=== PATIENT | male | born 1960 | race Caucasian/White ===

== ENCOUNTER 2016-09-18 11:41 | Emergency (ER) | payer MEDICARE, MEDICAID ==
[~2016-09-18] VITALS: Ht 165.1 cm; Wt 45.0 kg
[2016-09-18 11:42] VITALS: BP 135/95; PULSE 99; RESP 18; TEMP 98.8; O2SAT 98
--- NOTE | 2016-09-18 11:59 | PD ---
HPI . bites to hands and back pain for over several months Chief Complaint: Bite or Sting Time Seen by Provider: 11:59 Travel History International Travel<30 days: No Contact w/Intl Traveler<30days: No Traveled to known affect area: No History of Present Illness HPI 56-year-old homeless male here with complaints of bites to his bilateral hands. Patient says he thinks he may have been bitten by ants as he is sleeping in random places outside. He denies any fever, chills or swelling of the area. He tells me that he also has had left shoulder pain for several months and he would like us to check it out. He still has full range of motion of his bilateral hands. He has normal strength bilaterally. He has no other complaints. [facility] Social History Tobacco Use: Yes Review of Systems General / Constitutional: No: Fever Eyes: No: Visual changes HENT: No: Headaches Cardiovascular: No: Chest Pain or Discomfort Respiratory: No: Shortness of Breath Gastrointestinal: No: Abdominal Pain Genitourinary: No: Dysuria Musculoskeletal: Positive: Pain (left shoulder) Skin: Positive Other (insect bite to b/l hands), No Rash Neurologic: No: Weakness Psychiatric: No: Depression Endocrine: No: Polydipsia Hematologic/Lymphatic: No: Easy Bruising Physical Exam Narrative GENERAL: AAO x 3, no acute distress, Well-nourished, well-developed patient. SKIN: Warm and dry. No visible rashes or bruising. Bilateral hands with tiny papules and occasional pustule that appears to be at bite. There is no evidence of cellulitis or significant erythema. There is no edema. No temperature variation. HEAD: Normocephalic and atraumatic. EYES: No scleral icterus. No injection or drainage. ENT: No nasal drainage noted. Mucous membranes pink. Airway patent. NECK: Supple, trachea midline. No JVD. CARDIOVASCULAR: Regular rate and rhythm without murmurs, gallops, or rubs. RESPIRATORY: Breath sounds equal bilaterally. No accessory muscle use. No rhonchi or rales. GASTROINTESTINAL: Visual inspection normal EXTREMITIES: No cyanosis or edema. Full range of motion bilateral upper extremities. 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 BACK: Nontender without obvious deformity. No CVA tenderness. PSYCH: AAO x 3, normal affect. Data Data Last Documented VS Vital Signs Date Time Temp Pulse Resp B/P Pulse Ox O2 Delivery O2 Flow Rate FiO2 09/18/16 11:42 98.8 99 18 135/95 98 Room Air MDM Medical Decision Making Medical Screen Exam Complete: Yes Emergency Medical Condition: No Medical Record Reviewed: Yes Differential Diagnosis Ant bites, less likely cellulitis, chronic shoulder pain, less likely acute shoulder dislocation, less likely shoulder fracture Narrative Course Patient seen and examined. He appears to have an bites on his bilateral hands. There is no overt cellulitis or infection present. In regards to his shoulder pain this is chronic in nature. He has full range of motion of his bilateral joints in the upper extremity. I explained to him that he will need to establish with primary care provider for further workup and treatment. A medical screening exam was performed: At the time of evaluation the presenting medical condition was determined not to be of an emergent nature. The patient was given the option of receiving additional care, but declined. Patient was given options for additional community resources from which to obtain care. The Patient Has Been advised to seek medical attention for their presenting complaint. The patient has been advised to return to the ER at any time if an emergent condition develops. Diagnosis Primary Impression: Encounter for medical screening examination Condition: Stable Lakia Sousa September 18, 2016 11:59
[2016-09-26] MEDS ORDERED: [UNRECOGNIZED DRUG - CODE] (16:28)
[2016-09-26] MEDS ORDERED: [UNRECOGNIZED DRUG - REMARK] (16:28)
[2016-09-26] MEDS ORDERED: CRUTMIS (16:28)
[2016-09-26] MEDS ORDERED: [UNRECOGNIZED DRUG - SUPPLY] (16:32)
== END 2016-09-18 12:23 | disposition left against medical advice (07) ==
LOC: NEPK 11:41
DX: M54.9 Dorsalgia, unspecified (principal); M25.512 Pain in left shoulder
CPT/HCPCS: 99281

== ENCOUNTER 2016-11-03 11:36 | Emergency (ER) | payer MEDICARE, MEDICAID ==
[~2016-11-03 11:36] MED LIST: CRUTMIS; [UNRECOGNIZED DRUG - CODE]; [UNRECOGNIZED DRUG - REMARK]; [UNRECOGNIZED DRUG - SUPPLY]
[2016-11-03 11:38] VITALS: BP 135/95; PULSE 104; RESP 16; TEMP 98.2; O2SAT 98
--- NOTE | 2016-11-03 12:14 | PD ---
HPI Chief Complaint: Back/ Neck Pain or Injury Time Seen by Provider: 12:13 Travel History International Travel<30 days: No Contact w/Intl Traveler<30days: No Traveled to known affect area: No History of Present Illness HPI 56-year-old male presents emergency Department with complaint of right-sided low back pain that radiates down his right leg since yesterday after standing up out of a chair. 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 Denies traumatic injury. History of chronic back pain. Denies encopresis, incontinence, saddle anesthesias. Denies paresthesias , loss of sensation, decreased motion, decreased strength to right lower extremity. Denies fever, vomiting, abdominal pain. Denies IV drug use or cancer. Has taken Tylenol for symptom management. No known allergies. No other modifying factors or associated signs and symptoms. PFSH Past Medical History Medical History: Denies Significant Hx Past Surgical History Surgical History: No Previous Surgery Social History Alcohol Use: Yes Tobacco Use: Yes Substance Use: No Allergies-Medications (Allergen,Severity, Reaction): Coded Allergies: No Known Allergies (Unverified , 09/26/16) Reported Meds & Prescriptions Reported Meds & Active Scripts Active Robaxin (Methocarbamol) 500 Mg Tab 500 Mg PO QID PRN [prosthetic liner] Shrink Band (Pharmacy Compounding Accessory) 1 Each Each Ea Waist Belt Black (Misc. Devices) 1 Mis Mis Ea Crutch/Forearm/Adult (Device) 1 Mis Mis 1 Ea .ROUTE DIRECTED Review of Systems Except as stated in HPI: all other systems reviewed are Neg Physical Exam Narrative GENERAL: Well-nourished, well-developed male patient, in no acute distress; afebrile, nontoxic-appearing SKIN: Warm and dry. HEAD: Atraumatic. Normocephalic. EYES: Pupils equal and round. No scleral icterus. No injection or drainage. ENT: Mucosa pink and moist. Airway patent. NECK: Trachea midline. CARDIOVASCULAR: Regular rate. RESPIRATORY: No accessory muscle use. GASTROINTESTINAL: Flat. MUSCULOSKELETAL: Left lower extremity amputee. Right lower extremities supple and non-tense with 2+ pedal pulses and sensory intact; with full range of motion and 5/5 strength. 2+ DTRs right. Active dorsiflexion and extension of right foot. Right straight leg raise is positive for low back pain. Sitting up in bed at 90. No obvious deformities. No clubbing. No cyanosis. No edema. BACK: No midline point tenderness on palpation of the lumbar spine. Tenderness on palpation of right lumbar paraspinal/iliosacral area. No obvious deformities. NEUROLOGICAL: Awake and alert. Oriented 3. No obvious cranial nerve deficits. Motor grossly within normal limits. Normal speech. Moves all extremities. 5/5 strength to all extremities. Sensory intact. PSYCHIATRIC: Appropriate mood and affect; insight and judgment normal. Data Data Last Documented VS Vital Signs Date Time Temp Pulse Resp B/P Pulse Ox O2 Delivery O2 Flow Rate FiO2 11/03/16 11:38 98.2 104 16 135/95 98 Orders Ibuprofen (Motrin) (11/03/16 12:15) Methocarbamol (Robaxin) (11/03/16 12:15) [facility] Medical Decision Making Medical Screen Exam Complete: Yes Emergency Medical Condition: Yes Medical Record Reviewed: Yes Differential Diagnosis Acute exacerbation of chronic low back pain, sciatica, narcotic seeking Narrative Course 56-year-old male with acute exacerbation of chronic low back pain. Denies traumatic injury. Denies encopresis, incontinence, saddle anesthesia. Denies IV drug use or cancer. The patient was looked up on a force and he had 120 pills of hydrocodone prescribed him on October 18. Ibuprofen and Robaxin administered in the ER. Robaxin prescribed for home. Instructed patient to follow up with primary care provider. Patient verbalizes understanding and agreement with treatment plan. Patient is medically cleared and stable for discharge. Discussed reasons to return to the emergency department. Patient agrees with treatment plan. The patients vital signs are stable and the patient is stable for outpatient follow-up and treatment. Patient discharged home, stable and in no acute distress. Diagnosis Primary Impression: Acute exacerbation of chronic low back pain Referrals: Primary Care Physician Patient Instructions: Acute Low Back Pain (ED), Chronic Back Pain (ED), General Instructions Additional Instructions: Tylenol or ibuprofen as directed and as needed for pain Robaxin as prescribed and as needed for muscle spasms Heating pad and/or ice to affected area to reduce pain Avoid aggravating activities; increase activity as tolerated Follow-up with primary care provider Return to emergency department immediately with worsening of symptoms Med/Other Pt SpecificInfo: Prescription(s) given Scripts Methocarbamol (Robaxin)500 Mg [id number] Mg PO QID PRN (MUSCLE SPASM) #30 TAB Ref 0 Prov:Roseanne Lau 11/03/16 Disposition: 01 DISCHARGE HOME Condition: Stable Roseanne Lau Nov 03, 2016 12:14
[2016-11-03] MEDS ORDERED: ROBA500T PO (12:15)
[2016-11-03] MEDS ORDERED: IBUPROFEN 800 MG TAB PO ONE (12:15)
[2016-11-03] MEDS ORDERED: METHOCARBAMOL 500 MG TAB PO ONE (12:15)
== END 2016-11-03 12:27 | disposition home or self-care (01) ==
LOC: NEPD 11:36
DX: M54.5 Low back pain (principal); G89.29 Other chronic pain; Z79.899 Other long term (current) drug therapy; Z72.0 Tobacco use
CPT/HCPCS: 99283